=== PATIENT | female | born 1985 | race Caucasian/White ===

== ENCOUNTER 2016-06-30 12:44 | Emergency (ER) | payer BC, MEDICAID ==
[~2016-06-30] VITALS: Ht 160 cm; Wt 59.0 kg
[~2016-06-30 12:44] MED LIST: AMOX1TAB5
[2016-06-30 12:53] VITALS: BP 101/68
[2016-06-30] MEDS ORDERED: TDAP [DIPH/PERTUSSIS/TET] 0.5 ML VIAL IM ONE (13:03)
[2016-06-30] MEDS: TDAP [DIPH/PERTUSSIS/TET] 0.5 ML VIAL IM ONE (13:09)
== END 2016-06-30 13:19 | disposition home or self-care (01) ==
LOC: ER 12:47
DX: S90.812A Abrasion, left foot, initial encounter (principal); W22.8XXA Striking against or struck by other objects, initial encounter; Y93.89 Activity, other specified; Y92.89 Other specified places as the place of occurrence of the external cause; Y99.8 Other external cause status
CPT/HCPCS: 90715; A4606; Z7610